=== PATIENT | female | born 1990 | race Caucasian/White ===

== ENCOUNTER 2020-07-02 23:40 | Emergency (ER) | payer MEDICAID ==
[~2020-07-02] VITALS: Ht 154.9 cm; Wt 76.9 kg
[2020-07-02 23:52] VITALS: BP 127/85
--- NOTE | 2020-07-02 23:59 | NUR ---
PT TAKEN TO BED 12
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
--- NOTE | 2020-07-03 01:23 | NUR ---
PT AMBUALTED TO RESTROOM WITH STEADY GAIT.
--- NOTE | 2020-07-03 01:41 | NUR ---
ERMD AT BEDSIDE.
[2020-07-03] MEDS: METOCLOPRAMIDE 10 MG/2 ML INJ VIAL IM ONE (02:02)
--- NOTE | 2020-07-03 02:34 | NUR ---
PT STATED, "I FEEL SO MUCH BETTER NOW I DON'T HAVE ANYMORE PAIN." ERMD MADE AWARE.
[2020-07-03 02:47] VITALS: BP 127/85
--- NOTE | 2020-07-03 02:47 | NUR ---
PATIENT ELOPED FROM FACILITY. DISCHARGE INSTRUCTIONS NOT GIVEN TO PATIENT. DR. BARKSDALE NOTIFIED.
== END 2020-07-03 02:47 | disposition left against medical advice (07) ==
LOC: MED 23:40
DX: R51.9 Headache, unspecified (principal)
CPT/HCPCS: 81025; 96372; 99283; J2765

== ENCOUNTER 2022-01-03 02:02 | Emergency (ER) | payer MEDICAID ==
[~2022-01-03] VITALS: Ht 154.9 cm; Wt 77.1 kg
[2022-01-03 02:05] VITALS: BP 120/65
--- NOTE | 2022-01-03 02:05 | NUR ---
TO BED AMBULATORY
--- NOTE | 2022-01-03 03:41 | NUR ---
PELVIC EXAM DONE BY JOHNATHON WALTER AT BEDSIDE. WET MOUNT AND GC/CHAMYLDIA SWAB COLLECTED AND SENT TO LAB
--- NOTE | 2022-01-03 04:21 | NUR ---
WET MOUNT RECOLLECTED AND SENT TO LAB
[2022-01-03 04:25] LABS: APPEARANCE,URINE CLOUDY (CLEAR); BILIRUBIN,URINE NEGATIVE (NEGATIVE); BLOOD, URINE TRACE-I (NEGATIVE); COLOR,URINE YELLOW (YELLOW); LEUKOCYTE ESTERASE ,URINE 3+ (NEGATIVE); NITRITE, URINE NEGATIVE (NEGATIVE); PH,URINE 6.5 (5.0-9.0); UGLUCOSE NEGATIVE (NEGATIVE)
[2022-01-03 04:47] LABS: RBC,URINE 0-5 /HPF (0-5); WBC,URINE 16-25 (MOD) /HPF (0-5)
--- NOTE | 2022-01-03 05:37 | NUR ---
31YR OLD FEMALE BIB SELF C/O VAG PAIN. PT STATES RECENTLY PRESCRIBED KEFLEX FOR UTI. SINCE TAKING RX, VAG DISCOMFORT, PT STATES APPLYING OTC CREAM TO VAG AREA. PT STATES HAVING PAIN 9/10 NO DISCHARGE AREA IS SWOLLEN X1 DAY. NKDA NO MED HX TO NOTE
--- NOTE | 2022-01-03 05:37 | NUR ---
Patient discharged with v/s stable. Written and verbal after care instructions given and explained. Patient verbalized understanding. Ambulatory with steady gait. All questions addressed prior to discharge. Advised to follow up with PMD.
== END 2022-01-03 05:37 | disposition home or self-care (01) ==
LOC: MED 02:02
DX: N76.0 Acute vaginitis (principal)
CPT/HCPCS: 36415; 81001; 87086; 87210; 87491; 99283

== ENCOUNTER 2022-04-26 08:17 | Emergency (ER) | payer OTHER, MEDICAID ==
[~2022-04-26] VITALS: Ht 152.4 cm; Wt 82.6 kg
[2022-04-26 08:19] VITALS: BP 137/90
--- NOTE | 2022-04-26 08:24 | NUR ---
PT AMBULATED TO ER BED 3
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
[2022-04-26] MEDS ORDERED: ACET-10509 PO (09:19)
[2022-04-26] MEDS ORDERED: diazePAM 5 MG TAB PO ONE (09:20)
[2022-04-26] MEDS ORDERED: KETOROLAC 30 MG/ML VIAL IM ONE (09:20)
[2022-04-26 10:00] VITALS: BP 132/78
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
--- NOTE | 2022-04-26 10:01 | NUR ---
The patient's care was reviewed and supervised by Matilde Wheeler RN.
== END 2022-04-26 10:00 | disposition home or self-care (01) ==
LOC: MED 08:17
DX: M54.50 Low back pain, unspecified (principal); R51.9 Headache, unspecified; V49.88XA Car occupant (driver) (passenger) injured in other specified transport accidents, initial encounter; Y93.89 Activity, other specified; Y92.89 Other specified places as the place of occurrence of the external cause; Y99.8 Other external cause status
CPT/HCPCS: 96372; 99283; J1885

== ENCOUNTER 2022-07-04 05:32 | Emergency (ER) | payer MEDICAID ==
[~2022-07-04] VITALS: Ht 152.4 cm; Wt 79.8 kg
[~2022-07-04 05:32] MED LIST: ACET-10509 PO
[2022-07-04 05:50] VITALS: BP 129/78
--- NOTE | 2022-07-04 05:55 | NUR ---
PT TAKEN TO BED 2
--- NOTE | 2022-07-04 06:00 | NUR ---
PT CAME TO ER FOR EVALUATION OF ABD PAIN. A/OX4, DENIES PAIN FOR NOW. VSS. AMBULATORY WITH STEADY GAIT OBSERVED.
--- NOTE | 2022-07-04 06:23 | NUR ---
DR POLANCO AT BEDSIDE EXAMINING PT
[2022-07-04] MEDS ORDERED: NACL 0.9% 1,000 ML IV ONE (06:25)
[2022-07-04] MEDS ORDERED: MORPHINE SULFATE 4 MG/ML SYR IVP ONE (06:25)
[2022-07-04 06:37] LABS: APPEARANCE,URINE HAZY (CLEAR); BILIRUBIN,URINE NEGATIVE (NEGATIVE); BLOOD, URINE NEGATIVE (NEGATIVE); COLOR,URINE YELLOW (YELLOW); LEUKOCYTE ESTERASE ,URINE NEGATIVE (NEGATIVE); NITRITE, URINE NEGATIVE (NEGATIVE); UGLUCOSE NEGATIVE (NEGATIVE)
--- NOTE | 2022-07-04 06:57 | NUR ---
ONE TIME NS BOLUS GIVEN AND MORPHINE 4 MG IVP WAS ALSO GIVEN FOR ABD PAIN. AM ER MD CAME TALKING TO THE PT.
[2022-07-04 07:03] LABS: RBC,URINE 0-5 /HPF (0-5); WBC,URINE 0-5 /HPF (0-5)
[2022-07-04] MEDS ORDERED: LOPE-289 PO (07:10)
[2022-07-04] MEDS ORDERED: OMEP40EC24 PO (07:10)
[2022-07-04] MEDS ORDERED: IBUP-2213 PO (07:10)
[2022-07-04] MEDS ORDERED: ONDA8TAB87 PO (07:10)
--- NOTE | 2022-07-04 07:12 | NUR ---
REPORT GIVEN TO ARABELLA JOHNSON
--- NOTE | 2022-07-04 07:13 | NUR ---
REPORT RECEIVED FROM KELSEY IBRAHIM. ASSUMED CARE AT THIS TIME
--- NOTE | 2022-07-04 07:14 | NUR ---
Aren sheehan in [facility] - 07/04/22 at 0817 by [facility] REPORT RECEIVED FROM KELSEY SPAIN TRANSFER OF CARE AT THIS TIME
--- NOTE | 2022-07-04 07:14 | NUR ---
REPORT RECEIVED FROM KELSEY IBRAHIM. TRANSFER OF CARE AT THIS TIME
--- NOTE | 2022-07-04 07:30 | NUR ---
PT AT REST. RESPIRATIONS EVEN AND UNLABORED. STATES MILD RELIEF
--- NOTE | 2022-07-04 07:45 | NUR ---
LAB AT BEDSIDE
[2022-07-04 07:57] LABS: BASOPHILS % (AUTO) 0.5 % (0.0-2.0); EOSINOPHILS # (AUTO) 0.1 K/uL (0-0.4); HEMATOCRIT 34.4 % (36-48); HEMOGLOBIN 11.2 g/dL (12.0-16.0); LYMPHOCYTES # (AUTO) 1.9 K/uL (2.5-16.5); LYMPHOCYTES % (AUTO) 34.4 % (20.5-51.1); MEAN CORPUSCULAR HEMOGLOBIN 26 pg (27-31); MEAN CORPUSCULAR HGB CONC 33 g/dL (33-37); MEAN CORPUSCULAR VOLUME 79.4 fL (80-94); MONOCYTES # (AUTO) 0.6 K/uL (0.8-1.0); MONOCYTES % (AUTO) 10.3 % (1.7-9.3); NEUTROPHILS # (AUTO) 2.9 K/uL (1.8-7.7); NEUTROPHILS % (AUTO) 53.8 % (42.2-75.2); PLATELET COUNT (AUTO) 323 K/uL (140-450); RED BLOOD CELL COUNT(AUTO) 4.33 MIL/uL (4.20-5.40); RED CELL DISTRIBUTION WIDTH 16.2 % (11.6-13.7); WHITE BLOOD COUNT (AUTO) 5.5 K/uL (4.8-10.8)
[2022-07-04] MEDS ORDERED: DICYCLOMINE HCL LIQUID 20 MG, ALUMINUM HYD/MAG/SIMETHICONE 30 ML, LIDOCAINE VISCOUS 2% ... PO ONE ×3 (08:35)
[2022-07-04 08:41] LABS: AMYLASE 52 U/L (25-115); ASPARTATE AMINOTRANSFERASE 21 U/L (15-37); CARBON DIOXIDE 25.3 mmol/L (21-32); CHLORIDE 109 mmol/L (98-107); CREATININE 0.7 mg/dL (0.6-1.3); GFR ARICAN-AMERICAN 126 mL/min (>90); GLUCOSE 98 mg/dL (74-106); POTASSIUM 4.3 mmol/L (3.5-5.1); SODIUM SERUM 143 mmol/L (136-145); TOTAL BILIRUBIN 0.2 mg/dL (0.0-1.0); UREA NITROGEN, BLOOD 9 mg/dL (7-18)
[2022-07-04] MEDS ORDERED: ALUMINUM HYD/MAG/SIMETHICONE 30 ML UDC ONE (08:44)
[2022-07-04] MEDS ORDERED: DICYCLOMINE HCL LIQUID 10 MG/5 ML UDC ONE (08:44)
--- NOTE | 2022-07-04 09:20 | NUR ---
PT REPORTS PAIN RELIEF
--- NOTE | 2022-07-04 09:25 | NUR ---
IV removed, catheter intact and site benign. Applied folded 4x4 gauze and tape to stop bleeding.
[2022-07-04 09:28] VITALS: BP 106/70
--- NOTE | 2022-07-04 09:28 | NUR ---
Patient discharged with v/s stable. Written and verbal after care instructions FOR DIARRHEA AND ABDOMINAL PAIN given and explained. Patient alert, oriented and verbalized understanding of instructions. Ambulatory with steady gait. All questions addressed prior to discharge. ID band removed. Patient advised to follow up with PMD. Rx of IBUPROFEN,IMODIUM A-D, OMEPRAZOLE AND ZOFRAN given. Opportunity to ask questions provided and answered.
== END 2022-07-04 09:28 | disposition home or self-care (01) ==
LOC: MED 05:32
DX: R10.13 Epigastric pain (principal); R19.7 Diarrhea, unspecified; R11.0 Nausea; F12.90 Cannabis use, unspecified, uncomplicated; Z79.899 Other long term (current) drug therapy; Z98.890 Other specified postprocedural states
CPT/HCPCS: 36415; 80053; 81001; 82150; 83690; 85025; 96361; 96374; 99285; J2270